=== PATIENT | female | born 1960 | race Two or more races ===

== ENCOUNTER → 2016-07-01 | Day surgery (SDC) | payer BC, OTHER ==
[~2016-07-01] VITALS: Ht 162.6 cm; Wt 76.2 kg
[~2016-07-01] MED LIST: ASCO500T9 PO; ATEN100T PO; ATOR10TA PO; CHOL100044 PO; CHOL20004 PO; CYAN10009 PO; LOSA50TA21 PO; METF500T4 PO; METF500T7 PO; SIMV40TA5 PO
[2016-07-01 07:00] VITALS: BP 139/93
[2016-07-01 07:30] LABS: BASOPHILS % (AUTO) 0.5 % (0.0-2.0); EOSINOPHILS # (AUTO) 0.1 /CMM (0.0-0.7); EOSINOPHILS % (AUTO) 1.2 % (0.0-6.0); HEMATOCRIT 42 % (33-45); HEMOGLOBIN 14.1 g/dL (11.5-14.8); LYMPHOCYTES # (AUTO) 1.9 /CMM (0.8-4.8); LYMPHOCYTES % (AUTO) 25.3 % (20.0-44.0); MEAN CORPUSCULAR HEMOGLOBIN 29 PG (26.0-33.0); MEAN CORPUSCULAR HGB CONC 33 g/dl (31.0-36.0); MEAN CORPUSCULAR VOLUME 86 fL (82-100); MONOCYTES # (AUTO) 0.4 /CMM (0.1-1.30); MONOCYTES % (AUTO) 5.5 % (2.0-12.0); NEUTROPHILS % (AUTO) 67.5 % (43.0-81.0); PLATELET COUNT (AUTO) 204 /CMM (150-450); RDW COEFFICIENT OF VARIATION 12.7 (11.5-15.0); RED BLOOD CELL COUNT(AUTO) 4.91 MIL/uL (4.0-5.2); WHITE BLOOD COUNT (AUTO) 7.4 K/uL (4.3-11.0)
[2016-07-01 07:36] LABS: CALCIUM, SERUM 9.1 mg/dL (8.5-10.1); CREATININE 0.9 mg/dL (0.6-1.3); INR 0.96 (0.87-1.13); POTASSIUM 4.2 mmol/L (3.5-5.1); PROTHROMBIN TIME 10.4 SECS (9.5-12.7)
[2016-07-01 08:00] VITALS: BP 134/81
[2016-07-01 09:40] VITALS: BP 128/75
[2016-07-01 10:40] VITALS: BP 120/70
[2016-07-01 10:47] LABS: APPEARANCE,URINE CLEAR (CLEAR); BILIRUBIN,URINE NEGATIVE (NEGATIVE); BLOOD, URINE NEGATIVE Ery/uL (NEGATIVE); COLOR,URINE YELLOW (YELLOW); KETONES,URINE NEGATIVE (NEGATIVE); LEUKOCYTE ESTERASE ,URINE TRACE (NEGATIVE); NITRITE, URINE NEGATIVE (NEGATIVE); PH,URINE 5.5 (5.0-8.0); PROTEIN,URINE NEGATIVE (NEGATIVE); UGLUCOSE NEGATIVE (NEGATIVE); UROBILINOGEN,URINE 0.2 EU/dL (0.2)
[2016-07-01 10:57] LABS: RBC,URINE 0-2 /HPF (0-2)
[2016-07-01 10:58] LABS: ADD URINE CULTURE NO; BACTERIA,URINE Few /HPF (None Seen); MUCUS,URINE Few /LPF (None Seen); URINE AMORPHOUS URATE Few /HPF (None Seen)
== END | disposition home or self-care (01) ==
LOC: DS 05:54 → UNDOADMIN 06:19 → MED 06:19 → UNDODISIN 11:38
PROVIDERS: ATTEND Internal Medicine Gastroenterology
DX: K21.0 Gastro-esophageal reflux disease with esophagitis (principal); K29.70 Gastritis, unspecified, without bleeding; Z88.0 Allergy status to penicillin; I10 Essential (primary) hypertension; E11.9 Type 2 diabetes mellitus without complications
CPT/HCPCS: 36415; 80048-TC; 81000-TC; 85025-TC; 85610-TC; 85730-TC; 88305-TC; 88313-TC; 88342; Z7610

== ENCOUNTER 2016-09-01 14:55 | Outpatient (CLI) | payer BC ==
[~2016-09-01 14:55] MED LIST changes: -CHOL20004 PO; -CYAN10009 PO; -METF500T4 PO; -SIMV40TA5 PO
== END 2016-09-01 23:59 | disposition home or self-care (01) ==
LOC: LAB 14:55
PROVIDERS: ATTEND Family Medicine
DX: Z75.3 Unavailability and inaccessibility of health-care facilities (principal)

== ENCOUNTER 2017-01-09 11:59 | Outpatient (CLI) | payer BC | END 2017-01-09 23:59 | disposition home or self-care (01) | LOC: LAB 11:59 | PROVIDERS: ATTEND Family Medicine | DX: Z12.4 Encounter for screening for malignant neoplasm of cervix (principal); Z11.3 Encounter for screening for infections with a predominantly sexual mode of transmission; E11.9 Type 2 diabetes mellitus without complications | CPT/HCPCS: 88142 ==

== ENCOUNTER 2017-05-01 08:43 | Outpatient (CLI) | payer BC ==
[2017-05-01] MEDS ORDERED: GADOVERSETAMIDE 2.5 MMOL/5 ML VIAL IJ ONE ×2 (12:21)
== END 2017-05-01 23:59 | disposition home or self-care (01) ==
LOC: MRI 08:43
PROVIDERS: ATTEND Family Medicine
DX: C25.9 Malignant neoplasm of pancreas, unspecified (principal); Z90.49 Acquired absence of other specified parts of digestive tract
CPT/HCPCS: 72197; 74183; A9579

== ENCOUNTER 2018-02-22 14:54 | Outpatient (CLI) | payer BC | END 2018-02-22 23:59 | disposition home or self-care (01) | LOC: LAB 14:54 | PROVIDERS: ATTEND Family Medicine | DX: K86.2 Cyst of pancreas (principal) | CPT/HCPCS: 36415; 84520-TC; 86301 ==

== ENCOUNTER 2018-11-15 10:14 | Outpatient (CLI) | payer BC ==
[~2018-11-15 10:14] MED LIST changes: -LOSA50TA21 PO; +LOSA50TA39 PO
== END 2018-11-15 23:59 | disposition home or self-care (01) ==
LOC: CT 10:14
PROVIDERS: ATTEND Family Medicine
DX: G93.89 Other specified disorders of brain (principal); I65.29 Occlusion and stenosis of unspecified carotid artery; G51.0 Bell's palsy
CPT/HCPCS: 70450-TC

== ENCOUNTER 2018-11-29 07:35 | Outpatient (CLI) | payer BC ==
[2018-11-29] MEDS ORDERED: GADODIAMIDE 2.5 MMOL/5 ML VIAL IJ ONE (07:36)
[2018-11-29] MEDS ORDERED: GADODIAMIDE 5 MMOL/10 ML VIAL IJ ONE (07:36)
== END 2018-11-29 23:59 | disposition home or self-care (01) ==
LOC: MRI 07:35
PROVIDERS: ATTEND Family Medicine
DX: G93.89 Other specified disorders of brain (principal); G51.0 Bell's palsy
CPT/HCPCS: 70553; A9579 ×2

== ENCOUNTER 2018-12-20 09:54 | Outpatient (CLI) | payer BC | END 2018-12-20 23:59 | disposition home or self-care (01) | LOC: LAB 09:54 | PROVIDERS: ATTEND Family Medicine | DX: G93.89 Other specified disorders of brain (principal) | CPT/HCPCS: 36415 ==

== ENCOUNTER 2019-06-08 15:02 | Outpatient (CLI) | payer BC ==
[~2019-06-08 15:02] MED LIST changes: +METF500T20 PO; -METF500T7 PO
[2019-06-08 16:26] LABS: CREATININE 0.9 mg/dL (0.6-1.3)
== END 2019-06-08 23:59 | disposition home or self-care (01) ==
LOC: LAB 15:02
PROVIDERS: ATTEND Family Medicine
DX: K86.2 Cyst of pancreas (principal)
CPT/HCPCS: 36415; 82565-TC; 84520-TC

== ENCOUNTER 2019-06-20 11:55 | Outpatient (CLI) | payer BC ==
[2019-06-20] MEDS ORDERED: GADOTERIDOL 279.3 MG/ML VIAL IV ONE (11:56)
== END 2019-06-20 23:59 | disposition home or self-care (01) ==
LOC: MRI 11:55
PROVIDERS: ATTEND Family Medicine
DX: K86.2 Cyst of pancreas (principal); C25.2 Malignant neoplasm of tail of pancreas; K86.81 Exocrine pancreatic insufficiency; Z90.49 Acquired absence of other specified parts of digestive tract; Z88.0 Allergy status to penicillin
CPT/HCPCS: 74183; A9579

== ENCOUNTER 2020-01-30 09:37 | Outpatient (CLI) | payer BC ==
[~2020-01-30 09:37] MED LIST changes: +ASCO-352 PO; -ASCO500T9 PO; +METF-881 PO; -METF500T20 PO
[2020-01-30 11:41] LABS: BASOPHILS # (AUTO) 0.1 /CMM (0.0-0.2); BASOPHILS % (AUTO) 1.3 % (0.0-2.0); EOSINOPHILS % (AUTO) 1.8 % (0.0-6.0); HEMATOCRIT 44 % (33-45); HEMOGLOBIN 14.9 g/dL (11.5-14.8); LYMPHOCYTES # (AUTO) 1.7 /CMM (0.8-4.8); LYMPHOCYTES % (AUTO) 30.5 % (20.0-44.0); MEAN CORPUSCULAR HGB CONC 34 g/dl (31.0-36.0); MEAN CORPUSCULAR VOLUME 87 fL (82-100); MONOCYTES # (AUTO) 0.3 /CMM (0.1-1.30); MONOCYTES % (AUTO) 5.9 % (2.0-12.0); NEUTROPHILS # (AUTO) 3.3 /CMM (1.8-8.9); NEUTROPHILS % (AUTO) 60.5 % (43.0-81.0); PLATELET COUNT (AUTO) 217 /CMM (150-450); RED BLOOD CELL COUNT(AUTO) 5.09 MIL/uL (4.0-5.2); WHITE BLOOD COUNT (AUTO) 5.4 K/uL (4.3-11.0)
[2020-01-30 12:03] LABS: ALBUMIN 3.7 g/dL (3.4-5.0); BILIRUBIN,TOTAL 0.4 mg/dL (0.2-1.0); CALCIUM, SERUM 9.7 mg/dL (8.5-10.1); CREATININE 0.7 mg/dL (0.6-1.3); POTASSIUM 3.8 mmol/L (3.5-5.1); TOTAL PROTEIN, SERUM 7.1 g/dL (6.4-8.2)
[2020-01-30 12:04] LABS: THYROID STIMULATING HORMONE 1.438 uIU/mL (0.358-3.74)
== END 2020-01-30 23:59 | disposition home or self-care (01) ==
LOC: CT 09:37
PROVIDERS: ATTEND Family Medicine
DX: E11.9 Type 2 diabetes mellitus without complications (principal); J02.9 Acute pharyngitis, unspecified; R05 Cough; M46.04 Spinal enthesopathy, thoracic region; Z90.49 Acquired absence of other specified parts of digestive tract
CPT/HCPCS: 36415; 71250-TC; 80053-TC; 80061-TC; 84439-TC; 84443-TC; 85025-TC

== ENCOUNTER 2020-04-05 11:37 | Outpatient (CLI) | payer BC ==
[2020-04-05 12:48] LABS: CALCIUM, SERUM 9.2 mg/dL (8.5-10.1); CREATININE 0.8 mg/dL (0.6-1.3)
== END 2020-04-05 23:59 | disposition home or self-care (01) ==
LOC: LAB 11:37
PROVIDERS: ATTEND Family Medicine
DX: G44.59 Other complicated headache syndrome (principal)
CPT/HCPCS: 36415; 80048-TC

== ENCOUNTER 2020-04-10 11:25 | Outpatient (CLI) | payer BC ==
[2020-04-10] MEDS ORDERED: GADOTERATE MEGLUMINE 10 MMOL/20 ML VIAL IV ONE (11:26)
== END 2020-04-10 23:59 | disposition home or self-care (01) ==
LOC: MRI 11:25
PROVIDERS: ATTEND Family Medicine
DX: I67.82 Cerebral ischemia (principal); G44.59 Other complicated headache syndrome; J32.8 Other chronic sinusitis
CPT/HCPCS: 70553; A9575

== ENCOUNTER 2020-04-20 13:22 | Outpatient (CLI) | payer BC ==
[2020-04-20 14:38] LABS: BASOPHILS # (AUTO) 0.1 /CMM (0.0-0.2); HEMATOCRIT 47 % (33-45); HEMOGLOBIN 15.8 g/dL (11.5-14.8); MEAN CORPUSCULAR HGB CONC 33 g/dl (31.0-36.0); MEAN CORPUSCULAR VOLUME 87 fL (82-100); MONOCYTES # (AUTO) 0.4 /CMM (0.1-1.30); NEUTROPHILS # (AUTO) 4.2 /CMM (1.8-8.9); PLATELET COUNT (AUTO) 230 /CMM (150-450); RED BLOOD CELL COUNT(AUTO) 5.44 MIL/uL (4.0-5.2); WHITE BLOOD COUNT (AUTO) 6.8 K/uL (4.3-11.0)
[2020-04-20 15:15] LABS: ALBUMIN 3.9 g/dL (3.4-5.0); BILIRUBIN,TOTAL 0.4 mg/dL (0.2-1.0); CALCIUM, SERUM 9.6 mg/dL (8.5-10.1); CREATININE 0.9 mg/dL (0.6-1.3); TOTAL PROTEIN, SERUM 7.8 g/dL (6.4-8.2)
[2020-04-21 09:25] LABS: ERYTHROPOIETIN 4.5 mIU/mL (2.6-18.5)
== END 2020-04-20 23:59 | disposition home or self-care (01) ==
LOC: LAB 13:22
PROVIDERS: ATTEND Internal Medicine Hematology & Oncology
DX: D75.1 Secondary polycythemia (principal); G47.30 Sleep apnea, unspecified; F17.200 Nicotine dependence, unspecified, uncomplicated
CPT/HCPCS: 36415; 80053-TC; 82668; 82728-TC; 83540-TC; 85025-TC

== ENCOUNTER 2020-05-15 13:15 | Outpatient (CLI) | payer BC ==
[2020-05-15 13:49] LABS: BASOPHILS # (AUTO) 0.1 /CMM (0.0-0.2); BASOPHILS % (AUTO) 1.3 % (0.0-2.0); EOSINOPHILS % (AUTO) 2.3 % (0.0-6.0); HEMATOCRIT 43 % (33-45); HEMOGLOBIN 14.3 g/dL (11.5-14.8); LYMPHOCYTES # (AUTO) 2.1 /CMM (0.8-4.8); LYMPHOCYTES % (AUTO) 37.1 % (20.0-44.0); MEAN CORPUSCULAR HGB CONC 33 g/dl (31.0-36.0); MEAN CORPUSCULAR VOLUME 87 fL (82-100); MONOCYTES # (AUTO) 0.5 /CMM (0.1-1.30); NEUTROPHILS # (AUTO) 2.9 /CMM (1.8-8.9); NEUTROPHILS % (AUTO) 51.3 % (43.0-81.0); PLATELET COUNT (AUTO) 210 /CMM (150-450); RED BLOOD CELL COUNT(AUTO) 4.99 MIL/uL (4.0-5.2); WHITE BLOOD COUNT (AUTO) 5.6 K/uL (4.3-11.0)
[2020-05-15 14:02] LABS: ALBUMIN 3.5 g/dL (3.4-5.0); BILIRUBIN,TOTAL 0.4 mg/dL (0.2-1.0); CALCIUM, SERUM 8.7 mg/dL (8.5-10.1); CREATININE 0.8 mg/dL (0.6-1.3); POTASSIUM 3.9 mmol/L (3.5-5.1)
== END 2020-05-15 23:59 | disposition home or self-care (01) ==
LOC: LAB 13:15
PROVIDERS: ATTEND Internal Medicine Hematology & Oncology
DX: D75.1 Secondary polycythemia (principal)
CPT/HCPCS: 36415; 80053-TC; 82728-TC; 83540-TC; 85025-TC

== ENCOUNTER 2020-07-02 10:20 | Outpatient (CLI) | payer BC ==
[2020-07-02 10:51] LABS: BASOPHILS # (AUTO) 0.1 /CMM (0.0-0.2); EOSINOPHILS % (AUTO) 1.7 % (0.0-6.0); HEMATOCRIT 44 % (33-45); HEMOGLOBIN 14.5 g/dL (11.5-14.8); LYMPHOCYTES # (AUTO) 1.6 /CMM (0.8-4.8); LYMPHOCYTES % (AUTO) 28.3 % (20.0-44.0); MEAN CORPUSCULAR HGB CONC 33 g/dl (31.0-36.0); MEAN CORPUSCULAR VOLUME 87 fL (82-100); MONOCYTES # (AUTO) 0.4 /CMM (0.1-1.30); MONOCYTES % (AUTO) 6.6 % (2.0-12.0); NEUTROPHILS # (AUTO) 3.6 /CMM (1.8-8.9); NEUTROPHILS % (AUTO) 62.4 % (43.0-81.0); PLATELET COUNT (AUTO) 208 /CMM (150-450); RED BLOOD CELL COUNT(AUTO) 5.02 MIL/uL (4.0-5.2); WHITE BLOOD COUNT (AUTO) 5.7 K/uL (4.3-11.0)
[2020-07-02 11:06] LABS: ALBUMIN 3.7 g/dL (3.4-5.0); BILIRUBIN,TOTAL 0.5 mg/dL (0.2-1.0); CALCIUM, SERUM 9.5 mg/dL (8.5-10.1); CREATININE 0.9 mg/dL (0.6-1.3); POTASSIUM 4.2 mmol/L (3.5-5.1); TOTAL PROTEIN, SERUM 7.3 g/dL (6.4-8.2)
== END 2020-07-02 23:59 | disposition home or self-care (01) ==
LOC: LAB 10:20
PROVIDERS: ATTEND Internal Medicine Hematology & Oncology
DX: D75.1 Secondary polycythemia (principal)
CPT/HCPCS: 36415; 80053-TC; 82728-TC; 83540-TC; 85025-TC

== ENCOUNTER 2020-08-10 13:13 | Outpatient (CLI) | payer BC ==
[2020-08-10 13:49] LABS: BASOPHILS # (AUTO) 0.2 /CMM (0.0-0.2); BASOPHILS % (AUTO) 2.4 % (0.0-2.0); EOSINOPHILS % (AUTO) 1.3 % (0.0-6.0); HEMATOCRIT 47 % (33-45); HEMOGLOBIN 15.9 g/dL (11.5-14.8); LYMPHOCYTES # (AUTO) 1.7 /CMM (0.8-4.8); LYMPHOCYTES % (AUTO) 27.5 % (20.0-44.0); MEAN CORPUSCULAR HGB CONC 34 g/dl (31.0-36.0); MEAN CORPUSCULAR VOLUME 85 fL (82-100); MONOCYTES # (AUTO) 0.5 /CMM (0.1-1.30); MONOCYTES % (AUTO) 7.5 % (2.0-12.0); NEUTROPHILS # (AUTO) 3.9 /CMM (1.8-8.9); NEUTROPHILS % (AUTO) 61.3 % (43.0-81.0); PLATELET COUNT (AUTO) 240 /CMM (150-450); RED BLOOD CELL COUNT(AUTO) 5.52 MIL/uL (4.0-5.2); WHITE BLOOD COUNT (AUTO) 6.3 K/uL (4.3-11.0)
[2020-08-10 14:05] LABS: BILIRUBIN,TOTAL 0.6 mg/dL (0.2-1.0); CALCIUM, SERUM 9.8 mg/dL (8.5-10.1); CREATININE 0.9 mg/dL (0.6-1.3); POTASSIUM 3.5 mmol/L (3.5-5.1); TOTAL PROTEIN, SERUM 7.8 g/dL (6.4-8.2)
== END 2020-08-10 23:59 | disposition home or self-care (01) ==
LOC: LAB 13:13
PROVIDERS: ATTEND Internal Medicine Hematology & Oncology
DX: D75.1 Secondary polycythemia (principal)
CPT/HCPCS: 36415; 80053-TC; 82728-TC; 83540-TC; 85025-TC

== ENCOUNTER → 2020-09-13 | Outpatient (CLI) | payer BC ==
[2020-09-13 12:18] LABS: BASOPHILS # (AUTO) 0.1 /CMM (0.0-0.2); BASOPHILS % (AUTO) 1.1 % (0.0-2.0); EOSINOPHILS % (AUTO) 1.6 % (0.0-6.0); HEMATOCRIT 47 % (33-45); HEMOGLOBIN 15.5 g/dL (11.5-14.8); LYMPHOCYTES # (AUTO) 1.8 /CMM (0.8-4.8); LYMPHOCYTES % (AUTO) 31.9 % (20.0-44.0); MEAN CORPUSCULAR HGB CONC 33 g/dl (31.0-36.0); MEAN CORPUSCULAR VOLUME 85 fL (82-100); MONOCYTES # (AUTO) 0.4 /CMM (0.1-1.30); MONOCYTES % (AUTO) 6.4 % (2.0-12.0); NEUTROPHILS # (AUTO) 3.3 /CMM (1.8-8.9); PLATELET COUNT (AUTO) 258 /CMM (150-450); RED BLOOD CELL COUNT(AUTO) 5.51 MIL/uL (4.0-5.2); WHITE BLOOD COUNT (AUTO) 5.7 K/uL (4.3-11.0)
[2020-09-13 12:26] LABS: BILIRUBIN,TOTAL 0.6 mg/dL (0.2-1.0); POTASSIUM 3.5 mmol/L (3.5-5.1)
[2020-09-13 12:44] LABS: THYROID STIMULATING HORMONE 2.282 uIU/mL (0.358-3.74)
[2020-09-13 13:20] LABS: BILIRUBIN,URINE NEGATIVE (NEGATIVE); COLOR,URINE YELLOW (YELLOW); LEUKOCYTE ESTERASE ,URINE MODERATE (NEGATIVE); NITRITE, URINE NEGATIVE (NEGATIVE); PH,URINE 5.5 (5.0-8.0); PROTEIN,URINE NEGATIVE (NEGATIVE); UGLUCOSE NEGATIVE (NEGATIVE); UROBILINOGEN,URINE 0.2 EU/dL (0.2)
[2020-09-13 13:35] LABS: RBC,URINE 0-2 /HPF (0-2)
[2020-09-13 13:36] LABS: BACTERIA,URINE Few /HPF (None Seen); SQUAMOUS EPITHELIAL CELL,UR Many /HPF (None Seen)
== END | disposition home or self-care (01) ==
LOC: LAB 10:39
PROVIDERS: ATTEND Internal Medicine Hematology & Oncology
DX: D75.1 Secondary polycythemia (principal); E11.9 Type 2 diabetes mellitus without complications; E78.2 Mixed hyperlipidemia; I10 Essential (primary) hypertension; E55.9 Vitamin D deficiency, unspecified; E53.9 Vitamin B deficiency, unspecified; K86.2 Cyst of pancreas
CPT/HCPCS: 36415; 80053-TC; 80061-TC; 81001; 82150-TC; 82306; 82728-TC; 83540-TC; 83690-TC; 84439-TC; 84443-TC; 85025-TC; 86301; 87086-TC

== ENCOUNTER 2020-09-17 12:39 | Outpatient (CLI) | payer BC ==
[2020-09-17] MEDS ORDERED: GADOTERATE MEGLUMINE 10 MMOL/20 ML VIAL IV ONE (12:40)
== END 2020-09-17 23:59 | disposition home or self-care (01) ==
LOC: MRI 12:39
PROVIDERS: ATTEND Family Medicine
DX: K86.2 Cyst of pancreas (principal); K76.0 Fatty (change of) liver, not elsewhere classified; K86.89 Other specified diseases of pancreas; Z90.49 Acquired absence of other specified parts of digestive tract
CPT/HCPCS: 74183; A9575

== ENCOUNTER 2020-10-31 10:03 | Outpatient (CLI) | payer BC ==
[2020-10-31 10:33] LABS: BASOPHILS # (AUTO) 0.1 /CMM (0.0-0.2); BASOPHILS % (AUTO) 1.2 % (0.0-2.0); EOSINOPHILS % (AUTO) 1.1 % (0.0-6.0); HEMATOCRIT 45 % (33-45); HEMOGLOBIN 15.2 g/dL (11.5-14.8); LYMPHOCYTES % (AUTO) 15.3 % (20.0-44.0); MEAN CORPUSCULAR HGB CONC 34 g/dl (31.0-36.0); MEAN CORPUSCULAR VOLUME 87 fL (82-100); MONOCYTES # (AUTO) 0.3 /CMM (0.1-1.30); MONOCYTES % (AUTO) 5.2 % (2.0-12.0); NEUTROPHILS # (AUTO) 4.8 /CMM (1.8-8.9); NEUTROPHILS % (AUTO) 77.2 % (43.0-81.0); PLATELET COUNT (AUTO) 257 /CMM (150-450); RED BLOOD CELL COUNT(AUTO) 5.25 MIL/uL (4.0-5.2); WHITE BLOOD COUNT (AUTO) 6.3 K/uL (4.3-11.0)
[2020-10-31 10:45] LABS: ALBUMIN 4.1 g/dL (3.4-5.0); CALCIUM, SERUM 9.9 mg/dL (8.5-10.1); CREATININE 0.9 mg/dL (0.6-1.3); POTASSIUM 3.8 mmol/L (3.5-5.1); TOTAL PROTEIN, SERUM 7.9 g/dL (6.4-8.2)
== END 2020-10-31 23:59 | disposition home or self-care (01) ==
LOC: LAB 10:03
PROVIDERS: ATTEND Internal Medicine Hematology & Oncology
DX: D75.1 Secondary polycythemia (principal)
CPT/HCPCS: 36415; 80053-TC; 80061-TC; 82728-TC; 83540-TC; 85025-TC

== ENCOUNTER 2020-11-06 12:21 | Outpatient (CLI) | payer BC | END 2020-11-06 23:59 | disposition home or self-care (01) | LOC: RAD 12:21 | PROVIDERS: ATTEND Family Medicine | DX: Z01.818 Encounter for other preprocedural examination (principal); I70.0 Atherosclerosis of aorta | CPT/HCPCS: 71046 ==

== ENCOUNTER 2021-05-06 10:47 | Outpatient (CLI) | payer BC ==
[2021-05-06] MEDS ORDERED: GADOTERATE MEGLUMINE 10 MMOL/20 ML VIAL IV ONE (10:48)
== END 2021-05-06 23:59 | disposition home or self-care (01) ==
LOC: MRI 10:47
PROVIDERS: ATTEND Family Medicine
DX: K86.2 Cyst of pancreas (principal)
CPT/HCPCS: 74183; A9575

== ENCOUNTER 2021-08-12 14:21 | Outpatient (CLI) | payer BC | END 2021-08-12 23:59 | disposition home or self-care (01) | LOC: RAD 14:21 | PROVIDERS: ATTEND Family Medicine | DX: R05.9 Cough, unspecified (principal) | CPT/HCPCS: 71046 ==

== ENCOUNTER 2021-11-11 10:47 | Outpatient (CLI) | payer BC ==
[2021-11-11 12:06] LABS: BASOPHILS % (AUTO) 0.5 % (0.0-2.0); EOSINOPHILS % (AUTO) 1.4 % (0.0-6.0); HEMATOCRIT 44 % (33-45); HEMOGLOBIN 14.8 g/dL (11.5-14.8); LYMPHOCYTES % (AUTO) 30.7 % (20.0-44.0); MEAN CORPUSCULAR HGB CONC 33 g/dl (31.0-36.0); MEAN CORPUSCULAR VOLUME 86 fL (82-100); MONOCYTES # (AUTO) 0.4 K/uL (0.1-1.30); MONOCYTES % (AUTO) 6.6 % (2.0-12.0); NEUTROPHILS % (AUTO) 60.8 % (43.0-81.0); PLATELET COUNT (AUTO) 219 K/uL (150-450); RED BLOOD CELL COUNT(AUTO) 5.14 MIL/uL (4.0-5.2); WHITE BLOOD COUNT (AUTO) 6.6 K/uL (4.3-11.0)
[2021-11-11 12:11] LABS: ALBUMIN 3.8 g/dL (3.4-5.0); BILIRUBIN,TOTAL 0.6 mg/dL (0.2-1.0); CALCIUM, SERUM 9.8 mg/dL (8.5-10.1); CREATININE 0.9 mg/dL (0.6-1.3); POTASSIUM 3.9 mmol/L (3.5-5.1); TOTAL PROTEIN, SERUM 7.5 g/dL (6.4-8.2)
== END 2021-11-11 23:59 | disposition home or self-care (01) ==
LOC: CT 10:47
PROVIDERS: ATTEND Family Medicine
DX: J98.11 Atelectasis (principal); J84.10 Pulmonary fibrosis, unspecified; Z13.228 Encounter for screening for other metabolic disorders; D64.9 Anemia, unspecified; R06.00 Dyspnea, unspecified; Z90.49 Acquired absence of other specified parts of digestive tract
CPT/HCPCS: 36415; 71250-TC; 80053-TC; 82728-TC; 83540-TC; 85025-TC

== ENCOUNTER 2022-03-10 11:01 | Outpatient (CLI) | payer BC ==
[2022-03-10 13:21] LABS: BASOPHILS % (AUTO) 0.7 % (0.0-2.0); EOSINOPHILS % (AUTO) 1.9 % (0.0-6.0); HEMATOCRIT 47 % (33-45); HEMOGLOBIN 15.3 g/dL (11.5-14.8); LYMPHOCYTES # (AUTO) 1.7 K/uL (0.8-4.8); LYMPHOCYTES % (AUTO) 33.7 % (20.0-44.0); MEAN CORPUSCULAR HGB CONC 33 g/dl (31.0-36.0); MEAN CORPUSCULAR VOLUME 87 fL (82-100); MONOCYTES # (AUTO) 0.3 K/uL (0.1-1.30); MONOCYTES % (AUTO) 6.4 % (2.0-12.0); NEUTROPHILS # (AUTO) 2.9 K/uL (1.8-8.9); NEUTROPHILS % (AUTO) 57.3 % (43.0-81.0); PLATELET COUNT (AUTO) 229 K/uL (150-450); RED BLOOD CELL COUNT(AUTO) 5.35 MIL/uL (4.0-5.2)
[2022-03-10 13:22] LABS: BILIRUBIN,URINE NEGATIVE (NEGATIVE); COLOR,URINE YELLOW (YELLOW); LEUKOCYTE ESTERASE ,URINE MODERATE (NEGATIVE); NITRITE, URINE NEGATIVE (NEGATIVE); PROTEIN,URINE NEGATIVE (NEGATIVE); UGLUCOSE NEGATIVE (NEGATIVE); UROBILINOGEN,URINE 0.2 EU/dL (0.2)
[2022-03-10 13:34] LABS: BILIRUBIN,TOTAL 0.7 mg/dL (0.2-1.0); CALCIUM, SERUM 9.8 mg/dL (8.5-10.1); CREATININE 0.8 mg/dL (0.6-1.3); MAGNESIUM 2.3 mg/dL (1.8-2.4); POTASSIUM 4.2 mmol/L (3.5-5.1); TOTAL PROTEIN, SERUM 7.9 g/dL (6.4-8.2)
[2022-03-10 13:58] LABS: THYROID STIMULATING HORMONE 2.364 uIU/mL (0.358-3.74); URIC ACID 6.5 mg/dL (2.6-7.2)
[2022-03-10 15:55] LABS: BACTERIA,URINE Rare /HPF (None Seen); RBC,URINE 0-2 /HPF (0-2); WBC,URINE 0-2 /HPF (0-3)
== END 2022-03-10 23:59 | disposition home or self-care (01) ==
LOC: RAD 11:01
PROVIDERS: ATTEND Family Medicine
DX: M79.604 Pain in right leg (principal); E11.9 Type 2 diabetes mellitus without complications; E55.9 Vitamin D deficiency, unspecified; Z79.899 Other long term (current) drug therapy
CPT/HCPCS: 36415; 73590-TC; 80053-TC; 80061-TC; 81001; 82306; 82728-TC; 83540-TC; 83735-TC; 84439-TC; 84443-TC; 84481; 84550-TC; 85025-TC; 87086-TC

== ENCOUNTER 2022-03-13 13:53 | Outpatient (CLI) | payer BC | END 2022-03-13 23:59 | disposition home or self-care (01) | LOC: MRI 13:53 | PROVIDERS: ATTEND Family Medicine | DX: S83.272A Complex tear of lateral meniscus, current injury, left knee, initial encounter (principal); S83.281A Other tear of lateral meniscus, current injury, right knee, initial encounter; M17.0 Bilateral primary osteoarthritis of knee; M25.461 Effusion, right knee; M23.611 Other spontaneous disruption of anterior cruciate ligament of right knee; M23.612 Other spontaneous disruption of anterior cruciate ligament of left knee; M25.561 Pain in right knee; M25.562 Pain in left knee; M25.861 Other specified joint disorders, right knee; M25.862 Other specified joint disorders, left knee; X58.XXXA Exposure to other specified factors, initial encounter; Y93.89 Activity, other specified; Y92.89 Other specified places as the place of occurrence of the external cause; Y99.8 Other external cause status; M25.462 Effusion, left knee | CPT/HCPCS: 73721-TC ==

== ENCOUNTER 2022-07-21 11:17 | Outpatient (CLI) | payer BC | END 2022-07-21 23:59 | disposition home or self-care (01) | LOC: RAD 11:17 | PROVIDERS: ATTEND Family Medicine | DX: M51.36 Other intervertebral disc degeneration, lumbar region (principal); M16.12 Unilateral primary osteoarthritis, left hip; M47.816 Spondylosis without myelopathy or radiculopathy, lumbar region; M48.07 Spinal stenosis, lumbosacral region; K86.2 Cyst of pancreas; M40.46 Postural lordosis, lumbar region; Z87.891 Personal history of nicotine dependence; M25.852 Other specified joint disorders, left hip; M25.752 Osteophyte, left hip | CPT/HCPCS: 72100-TC; 73502 ==

== ENCOUNTER 2022-07-29 11:18 | Outpatient (CLI) | payer BC ==
[2022-07-29] MEDS ORDERED: GADOTERATE MEGLUMINE 10 MMOL/20 ML VIAL IV ONE (16:11)
== END 2022-07-29 23:59 | disposition home or self-care (01) ==
LOC: CT 11:18
PROVIDERS: ATTEND Family Medicine
DX: K86.2 Cyst of pancreas (principal); M54.40 Lumbago with sciatica, unspecified side; Z90.49 Acquired absence of other specified parts of digestive tract; Z87.891 Personal history of nicotine dependence; M25.552 Pain in left hip
CPT/HCPCS: 74183; 71250; A9575

== ENCOUNTER 2023-11-09 10:20 | Outpatient (CLI) | payer BC | END 2023-11-09 23:59 | disposition home or self-care (01) | LOC: MRI 10:20 | PROVIDERS: ATTEND Family Medicine | DX: S83.241A Other tear of medial meniscus, current injury, right knee, initial encounter (principal); M17.11 Unilateral primary osteoarthritis, right knee; M25.861 Other specified joint disorders, right knee; M25.461 Effusion, right knee; M65.861 Other synovitis and tenosynovitis, right lower leg; M25.561 Pain in right knee; X58.XXXA Exposure to other specified factors, initial encounter; Y93.89 Activity, other specified; Y92.89 Other specified places as the place of occurrence of the external cause; Y99.8 Other external cause status | CPT/HCPCS: 73721-TC ==